=== PATIENT | female | born 1960 | race Caucasian/White ===

== ENCOUNTER 2018-05-05 11:03 | Emergency (ER) | payer OTHER ==
[~2018-05-05] VITALS: Ht 152.4 cm; Wt 100.3 kg
[2018-05-05 11:03] VITALS: BP 145/71
[~2018-05-05 11:03] MED LIST: ALLO100T66 PO; ALPR0.5T PO; GABA-585 PO; MECL25TA3 PO; OMEP20CA5 PO; ONDA4TAB10 SL
--- NOTE | 2018-05-05 11:19 | PHYS DOC ---
Past History Past Medical History: Anxiety, Depression, GERD Past Surgical History: Hysterectomy Smoking: Cigarettes Alcohol Use: None Drug Use: None Adult General Chief Complaint Chief Complaint: FINGER INJURY HPI HPI 57-year-old female presents with left thumb laceration. The patient was making an apple salad and the knife slipped and she cut into her left thumb at the distal end. She began to have immediate bleeding and realized it was a large enough cut to need repair. She has no other injuries. She is unsure of the date of her last tetanus. Review of Systems Review of Systems Constitutional: Denies fever or chills [] Eyes: Denies change in visual acuity, redness, or eye pain [] HENT: Denies nasal congestion or sore throat [] Respiratory: Denies cough or shortness of breath [] Cardiovascular: No additional information not addressed in HPI [] GI: Denies abdominal pain, nausea, vomiting, bloody stools or diarrhea [] : Denies dysuria or hematuria [] Musculoskeletal: Left thumb laceration[] Integument: Denies rash or skin lesions [] Neurologic: Denies headache, focal weakness or sensory changes [] Endocrine: Denies polyuria or polydipsia [] All other systems were reviewed and found to be within normal limits, except as documented in this note. Allergies Allergies Allergies Coded Allergies Type Severity Reaction Last Updated Verified No Known Drug Allergies 05/05/18 No Physical Exam Physical Exam Constitutional: Well developed, well nourished, no acute distress, non-toxic appearance. [] HENT: Normocephalic, atraumatic, bilateral external ears normal, oropharynx moist, no oral exudates, nose normal. [] Eyes: PERRLA, EOMI, conjunctiva normal, no discharge. [] Neck: Normal range of motion, no tenderness, supple, no stridor. [] Cardiovascular:Heart rate regular rhythm, no murmur [] Lungs & Thorax: Bilateral breath sounds clear to auscultation [] Abdomen: Bowel sounds normal, soft, no tenderness, no masses, no pulsatile masses. [] Skin: 3.5 cm curved laceration of the distal left thumb.[] Back: No tenderness, no CVA tenderness. [] Extremities: No tenderness, no cyanosis, no clubbing, ROM intact, no edema. [] Neurologic: Alert and oriented X 3, normal motor function, normal sensory function, no focal deficits noted. [] Psychologic: Affect normal, judgement normal, mood normal. [] EKG EKG [] Radiology/Procedures Radiology/Procedures [] Course & Med Decision Making Course & Med Decision Making Pertinent Labs and Imaging studies reviewed. (See chart for details) The patient had a curved laceration of her thumb. This wound was fairly teeth at the center. I was able to repair with sutures. See note below for more details. A inform the patient that due to the curved nature of the wound there may be a section of the skin that would not survive. There is also a chance that she may have a portion of her thumb that we'll have decreased feeling temporarily or even permanently. If the skin dries up and becomes unviable, there is a small chance she may need to see plastic surgery. She is aware of all of this. She'll follow up with her PCP for wound check and suture removal in 7 days. Given the depth of the wound and the fact that she was cutting up food, I will put her on Keflex for 5 days prophylactically. She is stable for discharge at this time. [] Dragon Disclaimer Dragon Disclaimer This electronic medical record was generated, in whole or in part, using a voice recognition dictation system. Laceration Repair Lac Repair Indication: [3.5 cm curved laceration of the left thumb.] Procedure: I obtained verbal consent from the patient to repair her laceration with sutures. The area was thoroughly irrigated with Hibiclens saline solution. No foreign bodies were found. I anesthetized the finger with 1% lidocaine. A total of 2 mL was used. Once good anesthesia was achieved, I placed 6 interrupted 4-0 Ethilon sutures. The skin margins were well approximated. The bleeding was controlled. The wound was dressed with a nonadherent gauze dressing covered with a puffy gauze dressing. Total repaired wound length: 3.5 cm. Other Items: None The patient tolerated the procedure well. Complications: None. Departure Departure: Impression: Primary Impression: Laceration of left thumb without damage to nail Disposition: HOME, SELF-CARE Condition: STABLE Referrals: CHAYA CMDERMOTT DO (PCP) Patient Instructions: Laceration Care, Adult Scripts Cephalexin (KEFLEX) 500 Mg Capsule 1 CAP PO BID for laceration for 5 Days, #10 CAP Prov: TEMO CHAPMAN DO 05/05/18 Problem Qualifiers Primary Impression: Laceration of left thumb without damage to nail Encounter type: initial encounter Foreign body presence: without foreign body Qualified Codes: S61.012A - Laceration without foreign body of left thumb without damage to nail, initial encounter TEMO CHAPMAN DO May 05, 2018 11:19
[2018-05-05] MEDS ORDERED: DIPHTH,PERTUSS(ACELL),TET TOX 0.5 ML DISP.SYRIN. VAX IM ONE (11:30)
[2018-05-05] MEDS ORDERED: CEPH-264 PO (11:54)
[2018-05-05] MEDS ORDERED: HYDR-3165 PO (11:56)
== END 2018-05-05 11:57 | disposition home or self-care (01) ==
LOC: ER 11:03
DX: S61.012A Laceration without foreign body of left thumb without damage to nail, initial encounter (principal); F41.9 Anxiety disorder, unspecified; F32.9 Major depressive disorder, single episode, unspecified; K21.9 Gastro-esophageal reflux disease without esophagitis; F17.210 Nicotine dependence, cigarettes, uncomplicated; W26.0XXA Contact with knife, initial encounter; Y93.89 Activity, other specified; Y92.89 Other specified places as the place of occurrence of the external cause; Y99.8 Other external cause status
CPT/HCPCS: 12002; 90471; 90715; 99283-25

== ENCOUNTER → 2018-07-27 | Outpatient (CLI) | payer OTHER ==
[~2018-07-27] MED LIST changes: +CEPH-264 PO; +HYDR-3165 PO
--- NOTE | 2018-07-28 09:10 | RAD ---
PA and lateral chest. HISTORY: Short of breath PA and lateral chest views the chest were compared with a study from June 2015. Lungs are clear. Heart is normal in size without heart failure. There is no effusion. IMPRESSION: 1. No acute chest disease. Electronically signed by: Donato Wu MD (07/28/2018 9:08 AM) [facility]
== END | disposition home or self-care (01) ==
LOC: DXRAD 17:10
PROVIDERS: ATTEND General Practice
DX: R05 Cough (principal); R06.02 Shortness of breath
CPT/HCPCS: 71046

== ENCOUNTER → 2019-05-31 | Outpatient (CLI) | payer OTHER ==
[~2019-05-31] MED LIST changes: +MECL-75 PO; -MECL25TA3 PO
--- NOTE | 2019-06-04 17:55 | RAD ---
BILATERAL SCREENING MAMMOGRAM, 3-D History: Routine screening. Comparison: None. Prior examinations are reportedly no longer available. This exam is considered as a baseline. Technique: MLO and CC digital tomosynthesis (3D) images obtained. Radiologist reviewed these images on dedicated workstation. Findings: Breast Tissue Density B : There are scattered areas of fibroglandular density. There are no dominant masses, suspicious microcalcifications, or architectural distortion. A small mass is present however at the right lower inner breast anteriorly approximately 1.7 cm from the nipple. It measures up to 0.3 cm. Is best seen on 3-D imaging. Benign calcifications are present bilaterally. IMPRESSION: Spot compression of the right breast recommended. Ultrasound may be needed. BI-RADS Category 0: Incomplete: Need additional imaging evaluation. The images were reviewed with computer-aided detection. Patient information is entered into reminder system with a target due date for the next screening mammogram. Mammography is the most sensitive method for finding small breast cancers, but it does not detect them all and is not a substitute for careful clinical examination. A negative mammogram does not negate a clinically suspicious finding and should not result in delay in biopsying a clinically suspicious abnormality. "Our facility is accredited by the [employer] Mammography Program." Electronically signed by: Michael Galaviz MD (06/04/2019 5:52 PM) [place] [id number]
== END | disposition home or self-care (01) ==
LOC: MAMMO 08:48
PROVIDERS: ATTEND Family Medicine
DX: Z12.31 Encounter for screening mammogram for malignant neoplasm of breast (principal)
CPT/HCPCS: 77063; 77067

== ENCOUNTER → 2020-01-03 | Outpatient (CLI) | payer OTHER ==
--- NOTE | 2020-01-03 17:42 | RAD ---
DATE: 01/03/2020 12:59 PM EXAM: DIGITAL DIAGNOSTIC RT HISTORY: Screening recall for nodularity in the anterior lower inner right breast . Patient's follow-up examination was delayed due to pandemic related lockdowns. COMPARISON: 05/31/2019 bilateral mammogram Spot compression views of the right breast CC and MLO projections were obtained in addition to a full-field right ML view. This study was interpreted with the benefit of Computerized Aided Detection (CAD). FINDINGS: Breast Density: SCATTERED The breast parenchyma shows scattered fibroglandular densities. Breast parenchyma level B Benign nodular parenchymal pattern is better demonstrated on additional views obtained at this visit. Ultrasound not pursued given benign mammographic pattern. No suspicious masses, microcalcifications or architectural distortion is present to suggest malignancy in the breast. The visualized axilla is unremarkable. IMPRESSION: No mammographic evidence of malignancy. BI-RADS CATEGORY: 2 BENIGN FINDING(S) RECOMMENDED FOLLOW-UP: 12M 12 MONTH FOLLOW-UP Annual screening mammography is recommended, unless clinically indicated sooner based on symptoms or change in physical exam. She will next due for mammographic screening after May 31, 2020. PQRS compliance statement: Patient information was entered into a reminder system with a target due date for the next mammogram. Mammography is a sensitive method for finding small breast cancers, but it does not detect them all and is not a substitute for careful clinical examination. A negative mammogram does not negate a clinically suspicious finding and should not result in delay in biopsying a clinically suspicious abnormality. "Our facility is accredited by the [employer] Mammography Program."
== END | disposition home or self-care (01) ==
LOC: MAMMO 12:52
PROVIDERS: ATTEND Family Medicine
DX: R92.2 Inconclusive mammogram (principal)
CPT/HCPCS: 77065

== ENCOUNTER 2020-03-20 07:52 | Inpatient (IN) | payer OTHER ==
[~2020-03-20] VITALS: Ht 165.1 cm; Wt 102.7 kg
--- NOTE | 2020-03-20 07:59 | PHYS DOC ---
Past History Past Medical History: No Pertinent History Past Surgical History: Hysterectomy Smoking: Cigarettes Alcohol Use: None Drug Use: None Adult General HPI HPI Patient is a 59-year-old female presenting for symptomatic COVID-19 infection. States she was diagnosed 1 week ago and has been having 7 days worth of [id number] symptoms. Patient cites subjective fevers, fatigue, chills, muscle aches, shortness of breath, abdominal discomfort, nausea, and x1 episode of nonbloody nonbilious emesis this morning. She has had decreased p.o. intake because she has not been feeling well but admits her urine output has remained at baseline. She denies any known Covid positive contacts but admits she is in the general public grocery shopping for her family in addition to working a job that exposes her to the general public. She has not been tested for COVID-19 but wants to be tested today. No other significant past medical history, had provocative cardiac testing performed earlier this year in addition to a colonoscopy that were all grossly unremarkable. No headache or syncope, no chest pain, no urinary symptoms. Review of Systems Review of Systems Fourteen body systems of review of systems have been reviewed. See HPI for pertinent positives and negative responses, other hernandez all other systems are negative, non-pertinent or non-contributory Allergies Allergies Allergies Coded Allergies Type Severity Reaction Last Updated Verified No Known Drug Allergies 05/05/18 No Physical Exam Physical Exam Constitutional: Well developed, well nourished, no acute distress, non-toxic appearance. HENT: Normocephalic, atraumatic, bilateral external ears normal, oropharynx dry, no oral exudates, nose normal. Eyes: PERRLA, EOMI, conjunctiva normal, no discharge. Neck: Normal range of motion, no tenderness, supple, no stridor. Cardiovascular: Heart rate regular, sinus rhythm, no murmurs rubs or gallops Lungs & Thorax: No respiratory distress or accessory muscle use, crackles present in bilateral upper lung alcantar Abdomen: Bowel sounds normal, soft, no tenderness, no masses, no pulsatile masses. Nonsurgical abdomen, no peritoneal signs Skin: Warm, dry, no erythema, no rash. Back: No tenderness, no CVA tenderness. Extremities: No tenderness, no cyanosis, no clubbing, ROM intact, no edema. Neurologic: Alert and oriented X 3, grossly normal motor & sensory function, no focal deficits noted. Psychologic: Affect normal, judgement normal, anxious mood Current Patient Data Vital Signs Vital Signs Date Time Temp Pulse Resp B/P (MAP) Pulse Ox O2 Delivery O2 Flow Rate FiO2 03/20/20 09:45 75 16 129/66 (87) 96 Nasal Cannula 2.0 03/20/20 08:00 98.6 Lab Results Laboratory Tests Test 03/20/20 08:10 03/20/20 08:40 White Blood Count 3.9 x10^3/uL (4.0-11.0) Red Blood Count 4.22 x10^6/uL (3.50-5.40) Hemoglobin 12.6 g/dL (12.0-15.5) Hematocrit 36.9 % (36.0-47.0) Mean Corpuscular Volume 87 fL (79-100) Mean Corpuscular Hemoglobin 30 pg (25-35) Mean Corpuscular Hemoglobin Concent 34 g/dL (31-37) Red Cell Distribution Width 13.5 % (11.5-14.5) Platelet Count 118 x10^3/uL (140-400) Neutrophils (%) (Auto) 55 % (31-73) Lymphocytes (%) (Auto) 37 % (24-48) Monocytes (%) (Auto) 7 % (0-9) Eosinophils (%) (Auto) 1 % (0-3) Basophils (%) (Auto) 1 % (0-3) Neutrophils # (Auto) 2.1 x10^3uL (1.8-7.7) Lymphocytes # (Auto) 1.4 x10^3/uL (1.0-4.8) Monocytes # (Auto) 0.3 x10^3/uL (0.0-1.1) Eosinophils # (Auto) 0.0 x10^3/uL (0.0-0.7) Basophils # (Auto) 0.0 x10^3/uL (0.0-0.2) D-Dimer (Neema) 0.84 mg/L (0.00-0.50) Sodium Level 142 mmol/L (136-145) Potassium Level 3.9 mmol/L (3.5-5.1) Chloride Level 103 mmol/L (98-107) Carbon Dioxide Level 28 mmol/L (21-32) Anion Gap 11 (6-14) Blood Urea Nitrogen 13 mg/dL (7-20) Creatinine 0.8 mg/dL (0.6-1.0) Estimated GFR (Cockcroft-Gault) 73.9 BUN/Creatinine Ratio 16 (6-20) Glucose Level 112 mg/dL (70-99) Calcium Level 8.3 mg/dL (8.5-10.1) Total Bilirubin 0.3 mg/dL (0.2-1.0) Aspartate Amino Transf (AST/SGOT) 30 U/L (15-37) Alanine Aminotransferase (ALT/SGPT) 39 U/L (14-59) Alkaline Phosphatase 90 U/L (46-116) Troponin I Quantitative < 0.017 ng/mL (0-0.055) Total Protein 7.1 g/dL (6.4-8.2) Albumin 3.8 g/dL (3.4-5.0) Albumin/Globulin Ratio 1.2 (1.0-1.7) Influenza Type A (Rapid) Negative (NEGATIVE) Influenza Type B (Rapid) Negative (NEGATIVE) EKG EKG EKG ordered and interpreted by myself at 0902 hrs. as sinus rhythm at 82 bpm, intervals unremarkable except prolonged QTC at 471, left axis deviation, no acute ischemic findings, no STEMI Radiology/Procedures Radiology/Procedures EXAM: Chest, single view. HISTORY: Shortness of breath. COMPARISON: 07/27/2018 FINDINGS: A frontal view of the chest is obtained. There is no infiltrate, pleural effusion or pneumothorax. The heart is normal in size. IMPRESSION: No acute pulmonary finding. Electronically signed by: Tanya Funk MD (03/20/2020 8:38 AM) [facility] EXAM: CT angiography of the chest with intravenous contrast. HISTORY: Shortness of breath. Positive d-dimer. TECHNIQUE: Computed tomographic images of the chest were obtained following the administration of intravenous contrast according to angiography protocol. Multiplanar reformatting was performed and three dimensional maximum intensity projection images were obtained. *One or more of the following individualized dose reduction techniques were utilized for this examination: 1. Automated exposure control. 2. Adjustment of the mA and/or kV according to patient size. 3. Use of iterative reconstruction technique. COMPARISON: None. FINDINGS: There is no evidence of pulmonary embolism. The heart is upper normal in size. There is trace pericardial fluid. The aorta is normal in caliber. There are enlarged mediastinal and bilateral hilar lymph nodes. There is a calcification involving the inferior right thyroid lobe. No discrete nodule is seen. There is no pneumothorax or pleural effusion. There is left greater than right posterior lower lobe infiltrate. There are a few tiny groundglass nodular opacities within the right middle lobe, also likely due to infiltrate. There is a small hiatal hernia. The spleen is upper normal in size. There is no acute finding involving the the visualized upper abdomen or osseous structures. IMPRESSION: 1. No evidence of pulmonary vessel. 2. Posterior left greater than right lower lobe pneumonia and patchy nodular infiltrate within the right middle lobe. Follow-up to confirm resolution. 3. Mediastinal and hilar lymphadenopathy. This likely reactive given the aforementioned findings. Electronically signed by: Tanya uFnk MD (03/20/2020 9:45 AM) [facility] Heart Score HEART Score for Chest Pain: HEART Score for Chest Pain Response (Comments) Value History Slighlty/Non-Suspicious 0 ECG Normal 0 Age >45 - < 65 1 Risk Factors 1 or 2 Risk Factors 1 Troponin < Normal Limit 0 Total 2 Risk Factors: Risk Factors: DM, Current or recent (<one month) smoker, HTN, HLP, family history of CAD, obesity. Risk Scores: Risk Factors: DM, Current or recent (<one month) smoker, HTN, HLP, family history of CAD, obesity. Course & Med Decision Making Course & Med Decision Making Pertinent Labs and Imaging studies reviewed. (See chart for details) Discussed most likely diagnosis of bilateral pneumonia. Cannot exclude COVID-19 given classic symptomology, patient tested, test pending at this time. Patient desaturated on room air into 80s multiple times during admission requiring supplemental O2. As such, she will require admission I discussed need for admission with Dr. Madrid who agreed for admission under his care at [facility]. 2 g IV Rocephin and 100 mg IV doxycycline given prolonged QT administered for patient's pneumonia. Patient remains on 2 L supplemental oxygen via nasal cannula I updated patient on proposed plan of care, she was amenable to admission. All questions and concerns addressed prior to ER transport to [facility] for further inpatient medical management in stable condition Dulce Disclaimer Dulce Disclaimer This electronic medical record was generated, in whole or in part, using a voice recognition dictation system. PERC Rule for PE PERC Rule for PE Response (Comments) Value Age > 50: Yes 1 HR > 100: No 0 Sa02 on room air <95%: Yes 1 Unilateral leg swelling: No 0 Hemoptysis: No 0 Recent surgery or trauma: No 0 Prior PE or DVT: No 0 Hormone use: No 0 Total 2 Departure Departure: Impression: Primary Impression: PNA (pneumonia) Additional Impressions: Hypoxia Person under investigation for COVID-19 Disposition: 09 ADMITTED INPT THIS [facility] Admitting Physician: Kendrick Madrid Condition: STABLE Referrals: RAKEL BLANKENSHIP MD (PCP) Problem Qualifiers JULITA LOMELI DO Mar 20, 2020 07:59
[2020-03-20] MEDS ORDERED: IV NORMAL SALINE 1,000ML 1,000 ML IV ONE (08:00)
[2020-03-20] MEDS ORDERED: ONDANSETRON PF 4 MG/2 ML VIAL. IVP ONE (08:30)
[2020-03-20] MEDS ORDERED: ACETAMINOPHEN 325 MG TABLET PO ONE (08:30)
[2020-03-20 08:34] LABS: BASO % 1 % (0-3); EOS % 1 % (0-3); HEMATOCRIT 36.9 % (36.0-47.0); HEMOGLOBIN 12.6 g/dL (12.0-15.5); LYMPH # 1.4 x10^3/uL (1.0-4.8); LYMPH % 37 % (24-48); MEAN CORPUSCULAR HEMOGLOBIN 30 pg (25-35); MEAN CORPUSCULAR HGB CONC 34 g/dL (31-37); MEAN CORPUSCULAR VOLUME 87 fL (79-100); MONO # 0.3 x10^3/uL (0.0-1.1); MONO % 7 % (0-9); NEUT # 2.1 x10^3uL (1.8-7.7); NEUT % 55 % (31-73); PLATELET COUNT 118 x10^3/uL (140-400); RED BLOOD COUNT 4.22 x10^6/uL (3.50-5.40); RED CELL DISTRIBUTION WIDTH 13.5 % (11.5-14.5); WHITE BLOOD COUNT 3.9 x10^3/uL (4.0-11.0)
[2020-03-20 08:40] LABS: CALCIUM 8.3 mg/dL (8.5-10.1); CREATININE 0.8 mg/dL (0.6-1.0); GFR 73.9; POTASSIUM 3.9 mmol/L (3.5-5.1)
--- NOTE | 2020-03-20 08:41 | RAD ---
EXAM: Chest, single view. HISTORY: Shortness of breath. COMPARISON: 07/27/2018 FINDINGS: A frontal view of the chest is obtained. There is no infiltrate, pleural effusion or pneumothorax. The heart is normal in size. IMPRESSION: No acute pulmonary finding. Electronically signed by: Tanya Funk MD (03/20/2020 8:38 AM) [facility]
[2020-03-20 08:46] LABS: ALBUMIN 3.8 g/dL (3.4-5.0); ALBUMIN/GLOBULIN RATIO 1.2 (1.0-1.7); TOTAL BILIRUBIN 0.3 mg/dL (0.2-1.0); TOTAL PROTEIN 7.1 g/dL (6.4-8.2)
[2020-03-20] MEDS ORDERED: IOHEXOL 350 MG/ML 100 ML VIAL. IV ONE (09:15)
[2020-03-20] MEDS ORDERED: CONTRAST GIVEN. MC PRN (09:15)
[2020-03-20 09:19] LABS: INFLUENZA A PATIENT NEGATIVE (NEGATIVE); INFLUENZA B PATIENT NEGATIVE (NEGATIVE)
--- NOTE | 2020-03-20 09:47 | RAD ---
EXAM: CT angiography of the chest with intravenous contrast. HISTORY: Shortness of breath. Positive d-dimer. TECHNIQUE: Computed tomographic images of the chest were obtained following the administration of intravenous contrast according to angiography protocol. Multiplanar reformatting was performed and three dimensional maximum intensity projection images were obtained. *One or more of the following individualized dose reduction techniques were utilized for this examination: 1. Automated exposure control. 2. Adjustment of the mA and/or kV according to patient size. 3. Use of iterative reconstruction technique. COMPARISON: None. FINDINGS: There is no evidence of pulmonary embolism. The heart is upper normal in size. There is trace pericardial fluid. The aorta is normal in caliber. There are enlarged mediastinal and bilateral hilar lymph nodes. There is a calcification involving the inferior right thyroid lobe. No discrete nodule is seen. There is no pneumothorax or pleural effusion. There is left greater than right posterior lower lobe infiltrate. There are a few tiny groundglass nodular opacities within the right middle lobe, also likely due to infiltrate. There is a small hiatal hernia. The spleen is upper normal in size. There is no acute finding involving the the visualized upper abdomen or osseous structures. IMPRESSION: 1. No evidence of pulmonary vessel. 2. Posterior left greater than right lower lobe pneumonia and patchy nodular infiltrate within the right middle lobe. Follow-up to confirm resolution. 3. Mediastinal and hilar lymphadenopathy. This likely reactive given the aforementioned findings. Electronically signed by: Tanya Funk MD (03/20/2020 9:45 AM) [facility]
--- NOTE | 2020-03-20 09:54 | EKG ---
[facility] ED [facility] [address] [place] [id number] Test Date: 2020-03-20 Test Time: 08:53:10 Pat Name: HARMAN BANKS Department: Room: Gender: F Home Health Lpn: : 1960 Requested By: JULITA LOMELI Order Number: [id number] Reading MD: Measurements Intervals [place] Rate: 82 P: 36 TN: 162 QRS: -42 QRSD: 96 T: 36 QT: 400 QTc: 471 Interpretive Statements SINUS RHYTHM ABNORMAL LEFT AXIS DEVIATION R-S TRANSITION ZONE IN V LEADS DISPLACED TO THE LEFT LEFT ANTERIOR FASCICULAR BLOCK ABNORMAL ECG RI6.02 No previous ECG available for comparison
[2020-03-20] MEDS ORDERED: IV NORMAL SALINE 100ML 100 ML ONE (10:21)
[2020-03-20] MEDS ORDERED: DOXYCYCLINE HYCLATE 100 MG VIAL IV ONE (10:21)
[2020-03-20] MEDS ORDERED: IV DEXTROSE 5% 100 ML IV ONE (10:21)
[2020-03-20] MEDS ORDERED: ACETAMINOPHEN 325 MG TABLET PO PRN (10:30)
[2020-03-20] MEDS ORDERED: DOXYCYCLINE HYCLATE 100 MG in IV DEXTROSE 5% 100 ML IV ONE (10:30)
[2020-03-20 14:00] VITALS: BP 138/77
[2020-03-20] MEDS ORDERED: OMEP20TA63 PO (14:30)
[2020-03-20] MEDS ORDERED: CITA40TA5 PO (14:31)
[2020-03-20] MEDS ORDERED: ALPR1TAB2 PO (14:32)
[2020-03-20] MEDS ORDERED: ALPRAZolam 0.5 MG TABLET PO PRN (16:15)
[2020-03-20] MEDS ORDERED: MECLIZINE 12.5 MG TABLET. PO PRN (16:30)
[2020-03-20] MEDS: ENOXAPARIN 40 MG/0.4 ML SYRINGE. SQ SCH (17:54)
[2020-03-20 20:35] VITALS: BP 110/66
[2020-03-20 20:46] VITALS: BP 130/67
[2020-03-20 22:41] VITALS: BP 122/73
[2020-03-20] MEDS: ALPRAZolam 0.5 MG TABLET PO SCH (22:47)
[2020-03-20] MEDS: DOXYCYCLINE HYCLATE 100 MG TABLET PO SCH (22:47)
[2020-03-20] MEDS: ONDANSETRON ODT 4 MG TAB.RAPDIS PO SCH (22:47)
[2020-03-20] MEDS: GABAPENTIN 100 MG CAPSULE. PO SCH (22:48)
[2020-03-20] MEDS: ALLOPURINOL 100 MG TABLET. PO SCH (22:48)
--- NOTE | 2020-03-20 22:50 | HP ---
ADMIT DATE: 03/20/2020 HISTORY OF PRESENT ILLNESS: The patient is a 59-year-old female patient who presented to the Emergency Room with worsening symptoms. All her complaints started last about 6 days ago, specifically last Monday on 03/15/2020 with chills, fever, diarrhea, nausea, vomiting, aches and pains particularly in both legs. She also had chest pain, shortness of breath, cough that is mostly dry. Her symptom has steadily worsened and therefore she came today to the Emergency Room for further evaluation and treatment where she was extensively investigated. Her white cell count was on the lower side at 3.9. Her influenza A and B were both negative. Her D-dimer was 0.84. Her chemistry was mostly unremarkable. She did have a chest x-ray, which showed no acute pulmonary finding. However, CT angio of the chest showed that there is no evidence of pulmonary emboli; however, she has posterior left greater than right lower lobe pneumonia and patchy ____ infiltrate within the right middle lobe, follow up to confirm resolution. She also was found to have mediastinal and hilar lymphadenopathy. This is likely reactive given the aforementioned finding and the patient was admitted with a diagnosis of healthcare-associated pneumonia. She was also admitted with acute hypoxic respiratory failure and she was swabbed for COVID-19, although she has no documented exposure to COVID-19 virus. She was tested at work and she was negative according to her. PAST MEDICAL HISTORY: Significant for gastroesophageal reflux disease, anxiety and depression. PAST SURGICAL HISTORY: Significant for total abdominal hysterectomy without oophorectomy. ALLERGIES: She has no known drug allergies. MEDICATIONS: She is on Prilosec 20 mg once a day. She is also on alprazolam or Xanax 1 mg twice a day, citalopram hydrobromide 40 mg daily. She is on gabapentin 100 mg 3 times a day as well as meclizine 25 mg 3 times a day and ondansetron 4 mg ODT every 8 hours and allopurinol 100 mg 3 times a day. She was also on Keflex 500 mg twice a day and hydrocodone/APAP 5/325 one tablet every 6 hours. FAMILY HISTORY: Positive for the fact that her older sister has coronary artery disease, status post PCI with stent deployment. She has 2 younger sisters that are healthy. Her father is alive at age of 83 and has coronary artery bypass graft surgery. Mother is alive at age of 82 and seemingly healthy. SOCIAL HISTORY: She is , has 1 son and 2 daughters. She quit smoking 3 years ago. She does not drink alcohol or use any recreational drugs. She works at [employer] ____ [employer] for [employer]. REVIEW OF SYSTEMS: The patient denied any blurring of vision, cataract, glaucoma or macular degeneration. Denied any earache, tinnitus or sensorineural deafness. Denied any nosebleeds, stuffy nose or postnasal drip. Denied any sore throat, sore tongue, toothache, hoarseness of voice or difficulty swallowing. Did have some nausea and vomiting, however, the nausea and vomiting and diarrhea has mostly subsided. PHYSICAL EXAMINATION: GENERAL: When I examined her today, she was resting, slightly propped up in bed, in no apparent respiratory distress. There was no pallor, jaundice, cyanosis or thyromegaly. No jugular venous distention or limb edema. VITAL SIGNS: Her heart rate was 74, blood pressure was 138/77, temperature was 99, respiratory rate 20 and oxygen saturation was 94% on 2 liters of oxygen. HEAD, EYES, EARS, NOSE AND THROAT: Showed normocephalic, atraumatic. NECK: Supple. HEART: Showed normal first and second heart sounds. No gallop, rub or murmur. CHEST: Showed central trachea, equal bilateral expansion, air entry, vesicular sounds, very few scattered crepitations posteriorly. I could not appreciate any rhonchi. ABDOMEN: Distended, soft, nontender. NEUROLOGIC: She was awake, alert, responding appropriately. She is grossly intact. LABORATORY DATA: Showed a white cell count of 3900, hemoglobin 12.6, hematocrit 36.9, MCV 87 and platelet count of 118,000. Her serum sodium was 142, potassium 3.9, chloride 103, bicarbonate 28, anion gap of 11, BUN 13, creatinine 0.8, estimated GFR was 74 mL per minute. Her glucose was 112, calcium was 8.3. Total bilirubin 0.3. AST, ALT, alkaline phosphatase were normal. Her total protein was 7.1, albumin was 3.8. Her D-dimer was 0.84. Her influenza A and B were negative and CT scan showed that she has posterior left greater than right lower lobe pneumonia and patchy nodular infiltrate within the right middle lobe. She also has mediastinal and hilar lymphadenopathy, it is likely reactive given the aforementioned. ASSESSMENT AND PLAN: 1. The patient was admitted and was started on IV ceftriaxone and doxycycline. We will continue with all her other medications. Other final admission diagnosis is community-acquired pneumonia, questionable COVID-19 infection. 2. Acute hypoxic respiratory failure. 3. Gastroesophageal reflux disease. 4. Anxiety and depression. CRUZ HECTOR MD DR: FAYE/edwina JOB#: [id number] / [id number]
[2020-03-21] MEDS: HYDROcodone/APAP 5/325MG 1 TAB TABLET PO PRN ×3 (05:47→20:25)
[2020-03-21] MEDS: ONDANSETRON ODT 4 MG TAB.RAPDIS PO SCH ×3 (05:47→22:00)
[2020-03-21 05:50] VITALS: BP 128/77
[2020-03-21] MEDS: PANTOPRAZOLE 40 MG TABLET. PO SCH (08:22)
[2020-03-21] MEDS: GABAPENTIN 100 MG CAPSULE. PO SCH ×3 (08:22→20:23)
[2020-03-21] MEDS: ALPRAZolam 0.5 MG TABLET PO SCH ×2 (08:22→20:25)
[2020-03-21] MEDS: DOXYCYCLINE HYCLATE 100 MG TABLET PO SCH ×2 (08:22→20:24)
[2020-03-21] MEDS: CITALOPRAM 20 MG TABLET. PO SCH (08:22)
[2020-03-21] MEDS: ALLOPURINOL 100 MG TABLET. PO SCH ×3 (08:22→20:24)
[2020-03-21 09:26] LABS: HEMATOCRIT 34.5 % (36.0-47.0); HEMOGLOBIN 11.6 g/dL (12.0-15.5); RED BLOOD COUNT 3.94 x10^6/uL (3.50-5.40); RED CELL DISTRIBUTION WIDTH 13.6 % (11.5-14.5); WHITE BLOOD COUNT 3.4 x10^3/uL (4.0-11.0)
[2020-03-21 11:00] VITALS: BP 125/70
[2020-03-21 14:07] LABS: ALBUMIN 3.3 g/dL (3.4-5.0); ALBUMIN/GLOBULIN RATIO 0.9 (1.0-1.7); CALCIUM 8.3 mg/dL (8.5-10.1); CREATININE 0.8 mg/dL (0.6-1.0); GFR 73.9; POTASSIUM 3.7 mmol/L (3.5-5.1); TOTAL BILIRUBIN 0.3 mg/dL (0.2-1.0); TOTAL PROTEIN 6.8 g/dL (6.4-8.2)
[2020-03-21 15:35] VITALS: BP 121/72
[2020-03-21] MEDS: ENOXAPARIN 40 MG/0.4 ML SYRINGE. SQ SCH (16:59)
[2020-03-21] MEDS: ACETAMINOPHEN 325 MG TABLET PO PRN (18:33)
[2020-03-21] MEDS: LACTOBACILLUS RHAMNOSUS GG 1 CAPSULE. PO SCH (20:24)
[2020-03-21] MEDS ORDERED: LACTOBACILLUS RHAMNOSUS GG 1 CAPSULE. PO SCH (21:00)
[2020-03-21 21:09] VITALS: BP 142/82
[2020-03-22] VITALS (8 sets, daily range): BP systolic 116–158; BP diastolic 65–77
--- NOTE | 2020-03-22 00:45 | PN ---
DATE: SUBJECTIVE: The patient is resting, almost flat in bed, sleeping comfortably. She is arousable. On questioning her, she stated that she is feeling tired, but denied any other complaints. In particular, denied any chills, rigors, or fever. Denied any chest pain. She has mild cough that is mostly dry. PHYSICAL EXAMINATION: GENERAL: When I examined her this afternoon, she looked well and was clearly in no apparent respiratory distress. Pale. No jaundice, cyanosis or thyromegaly. No jugular venous distention. No limb edema. VITAL SIGNS: Her heart rate was 73, blood pressure was 125/70, temperature was 98.4, respiratory rate was 18 and oxygen saturation was 93% on 2 liters of oxygen. HEAD, EYES, EARS, NOSE AND THROAT: Showed normocephalic, atraumatic. NECK: Supple. CARDIAC: Normal first and second heart sounds. No gallop or murmur. CHEST: Showed central trachea, equal bilateral chest expansion, air entry, very few scattered crepitations posteriorly. I could not appreciate any rhonchi. ABDOMEN: Distended, soft, nontender. NEUROLOGIC: She was sleepy, but arousable. All cranial nerves intact. She moves extremities without difficulty. Her intake over the last 24 hours and output are incompletely recorded. LABORATORY DATA: Her lab work this morning showed a white cell count of 3400, hemoglobin 11.6, hematocrit 34.5, MCV 88 and platelet count of 109,000. Her chemistry this morning showed a serum sodium 144, potassium 3.7, chloride 109, bicarbonate 28, anion gap of 7, BUN 11, creatinine 0.8, estimated GFR was 74 mL per minute. Her glucose was 97, calcium was 8.3. Total bilirubin, AST, ALT, alkaline phosphatase were normal. Total protein 6.8, albumin 3.3. Her influenza A and B were negative. Her D-dimer was 0.84. Her COVID-19 was still pending at the time of this dictation. ASSESSMENT: 1. The patient was admitted with community-acquired pneumonia for which she is now on ceftriaxone and doxycycline. 2. Questionable COVID-19 infection. 3. Acute hypoxic respiratory failure. 4. Gastroesophageal reflux disease. 5. Anxiety and depression. PLAN: To continue with IV antibiotic in the form of ceftriaxone and doxycycline. Continue with DVT prophylaxis. Continue with GI prophylaxis. Continue with all her other medications. CRUZ HECTOR MD DR: FAYE/edwina JOB#: [id number] / [id number]
[2020-03-22] MEDS: ONDANSETRON ODT 4 MG TAB.RAPDIS PO SCH ×3 (06:00→20:39)
[2020-03-22] MEDS: LACTOBACILLUS RHAMNOSUS GG 1 CAPSULE. PO SCH ×2 (08:39→20:39)
[2020-03-22] MEDS: DOXYCYCLINE HYCLATE 100 MG TABLET PO SCH ×2 (08:40→20:39)
[2020-03-22] MEDS: PANTOPRAZOLE 40 MG TABLET. PO SCH (08:40)
[2020-03-22] MEDS: ALPRAZolam 0.5 MG TABLET PO SCH ×2 (08:40→20:39)
[2020-03-22] MEDS: GABAPENTIN 100 MG CAPSULE. PO SCH ×3 (08:40→20:38)
[2020-03-22] MEDS: ALLOPURINOL 100 MG TABLET. PO SCH ×3 (08:40→20:39)
[2020-03-22] MEDS: CITALOPRAM 20 MG TABLET. PO SCH (08:40)
[2020-03-22] MEDS: HYDROcodone/APAP 5/325MG 1 TAB TABLET PO PRN (15:25)
[2020-03-22] MEDS: DEXAMETHASONE SOD PHOS 10 MG/ML VIAL. IV SCH (15:38)
[2020-03-22] MEDS: ENOXAPARIN 40 MG/0.4 ML SYRINGE. SQ SCH (17:11)
--- NOTE | 2020-03-23 01:57 | PN ---
DATE: 03/22/2020 SUBJECTIVE: The patient is resting, slightly propped up in bed, in no apparent distress. She is awake, alert. Continued to have cough, which is mostly dry, but denied any shortness of breath. Denied any chills, rigors or fever. PHYSICAL EXAMINATION: GENERAL: When I examined her, she looked well and was clearly in no apparent respiratory distress. No pallor, jaundice, cyanosis or thyromegaly. No jugular venous distention. No limb edema. VITAL SIGNS: Her heart rate was 78, blood pressure was 116/72, temperature was 98.2, respiratory rate was 18 and oxygen saturation was 93% on 2 liters of oxygen. HEAD, EYES, EARS, NOSE AND THROAT: Normocephalic, atraumatic. NECK: Supple. CARDIAC: Normal first and second heart sounds. No gallop or murmur. CHEST: Clear to auscultation. No crepitation or rhonchi. ABDOMEN: Distended, soft, nontender. NEUROLOGIC: She was awake, alert, responding appropriately. All cranial nerves intact. She moves extremities without difficulty. She ambulates without assistance or assistive devices. Her intake was 1500, no output was recorded. Her coronavirus PCR was detectable. Her influenza A and B were negative. LABORATORY DATA: Her chemistry as of yesterday showed a serum sodium 144, potassium 3.7, chloride 109, bicarbonate 28, anion gap of 7, BUN 11, creatinine 0.8. Her white cell count was 3400, hemoglobin 11, hematocrit 34, MCV 88 and platelet count of 109,000. Her D-dimer was 0.84. ASSESSMENT: 1. COVID-19 pneumonia. 2. Acute hypoxic respiratory failure. 3. Gastroesophageal reflux disease. 4. Anxiety and depression. 5. Gout. PLAN: My plan is to continue with IV ceftriaxone as well as doxycycline. Continue with DVT prophylaxis. Continue with GI prophylaxis. I added dexamethasone. CRUZ HECTOR MD DR: FAYE/edwina JOB#: [id number] / [id number]
[2020-03-23 05:20] VITALS: BP 127/76
[2020-03-23] MEDS: ONDANSETRON ODT 4 MG TAB.RAPDIS PO SCH ×2 (06:30→13:23)
[2020-03-23 06:34] LABS: HEMATOCRIT 34.9 % (36.0-47.0); HEMOGLOBIN 11.9 g/dL (12.0-15.5); RED BLOOD COUNT 4.02 x10^6/uL (3.50-5.40); RED CELL DISTRIBUTION WIDTH 13.3 % (11.5-14.5); WHITE BLOOD COUNT 3.6 x10^3/uL (4.0-11.0)
[2020-03-23 06:42] LABS: ALBUMIN 3.3 g/dL (3.4-5.0); ALBUMIN/GLOBULIN RATIO 0.8 (1.0-1.7); CALCIUM 8.6 mg/dL (8.5-10.1); CREATININE 0.6 mg/dL (0.6-1.0); POTASSIUM 3.8 mmol/L (3.5-5.1); TOTAL BILIRUBIN 0.3 mg/dL (0.2-1.0); TOTAL PROTEIN 7.5 g/dL (6.4-8.2)
[2020-03-23] MEDS: DOXYCYCLINE HYCLATE 100 MG TABLET PO SCH ×2 (08:17→20:25)
[2020-03-23] MEDS: ALLOPURINOL 100 MG TABLET. PO SCH ×3 (08:17→20:25)
[2020-03-23] MEDS: PANTOPRAZOLE 40 MG TABLET. PO SCH (08:17)
[2020-03-23] MEDS: LACTOBACILLUS RHAMNOSUS GG 1 CAPSULE. PO SCH ×2 (08:17→20:24)
[2020-03-23] MEDS: CITALOPRAM 20 MG TABLET. PO SCH (08:17)
[2020-03-23] MEDS: GABAPENTIN 100 MG CAPSULE. PO SCH ×3 (08:17→20:24)
[2020-03-23] MEDS: ALPRAZolam 0.5 MG TABLET PO SCH ×2 (08:17→20:24)
[2020-03-23] MEDS: DEXAMETHASONE SOD PHOS 10 MG/ML VIAL. IV SCH (08:18)
[2020-03-23] MEDS: HYDROcodone/APAP 5/325MG 1 TAB TABLET PO PRN (09:18)
[2020-03-23 10:00] VITALS: BP 117/71
[2020-03-23] MEDS: ENOXAPARIN 40 MG/0.4 ML SYRINGE. SQ SCH (13:23)
[2020-03-23 15:00] VITALS: BP 112/75
[2020-03-23] MEDS ORDERED: ONDANSETRON ODT 4 MG TAB.RAPDIS PO PRN (16:00)
[2020-03-23 19:30] VITALS: BP 157/75
--- NOTE | 2020-03-23 20:57 | PN ---
DATE: SUBJECTIVE: The patient is resting, slightly propped up in bed, in no apparent distress. She is awake, alert, continued to complain mostly of generalized weakness and fatigability. She continued to desaturate with exertion. In fact, she requires 3 liters of oxygen to maintain her oxygen saturation at 90 or above. Denied any chest pain. Denied any shortness of breath, has cough with scanty sputum. PHYSICAL EXAMINATION: GENERAL: When I examined her, she looked somewhat pale, but no jaundice, cyanosis or thyromegaly. No jugular venous distention. No limb edema. VITAL SIGNS: Her heart rate was 74, blood pressure was 117/71, temperature was 97.7, respiratory rate was 20 and oxygen saturation was 91% on 3 liters of oxygen. HEAD, EYES, EARS, NOSE AND THROAT: Showed normocephalic, atraumatic. NECK: Supple. HEART: Showed normal first and second heart sounds. No gallop, rub or murmur. CHEST: Showed central trachea, equal bilateral chest expansion, air entry, vesicular sounds with crepitation mostly on the left side. I could not really appreciate any rhonchi. ABDOMEN: Distended, soft, nontender. NEUROLOGIC: She is awake, alert, responding appropriately. All her cranial nerves intact. She moves extremities without difficulty. She ambulates without assistance or assistive devices. Her intake was 1370, no output was recorded. Her white cell count today was 3600, hemoglobin 12, hematocrit 35, MCV 87 and platelet count of 145,000. LABORATORY DATA: Serum sodium was 144, potassium 3.8, chloride 106, bicarbonate 31, anion gap of 7, BUN 13, creatinine 0.6, estimated GFR was 103 mL per minute. Her glucose 143, calcium was 8.6. Total bilirubin, AST, ALT, alkaline phosphatase were normal. Her total protein was 7.5, albumin was 3.3. ASSESSMENT: 1. COVID-19 pneumonia. 2. Acute hypoxic respiratory failure. 3. Gastroesophageal reflux disease. 4. Anxiety and depression. 5. Gout. PLAN: To continue with IV ceftriaxone as well as doxycycline. Continue with DVT prophylaxis. Continue with GI prophylaxis. Continue with dexamethasone. CRUZ HECTOR MD DR: FAYE/edwina JOB#: [id number] / [id number]
[2020-03-23 22:45] VITALS: BP 135/69
[2020-03-24 05:45] VITALS: BP 149/73
[2020-03-24] MEDS: LACTOBACILLUS RHAMNOSUS GG 1 CAPSULE. PO SCH ×2 (08:07→20:01)
[2020-03-24] MEDS: ALPRAZolam 0.5 MG TABLET PO SCH ×2 (08:07→20:01)
[2020-03-24] MEDS: GABAPENTIN 100 MG CAPSULE. PO SCH ×3 (08:08→20:01)
[2020-03-24] MEDS: ALLOPURINOL 100 MG TABLET. PO SCH ×3 (08:08→20:01)
[2020-03-24] MEDS: DOXYCYCLINE HYCLATE 100 MG TABLET PO SCH ×2 (08:08→20:01)
[2020-03-24] MEDS: CITALOPRAM 20 MG TABLET. PO SCH (08:08)
[2020-03-24] MEDS: PANTOPRAZOLE 40 MG TABLET. PO SCH (08:08)
[2020-03-24] MEDS: DEXAMETHASONE SOD PHOS 10 MG/ML VIAL. IV SCH (08:08)
[2020-03-24 11:00] VITALS: BP 136/73
[2020-03-24] MEDS: ENOXAPARIN 40 MG/0.4 ML SYRINGE. SQ SCH (14:48)
[2020-03-24 15:30] VITALS: BP 115/72
[2020-03-24 20:23] VITALS: BP 132/73
[2020-03-24 23:05] VITALS: BP 154/79
--- NOTE | 2020-03-25 00:32 | PN ---
DATE: 03/24/2020 SUBJECTIVE: The patient is resting, slightly propped up in bed, in no apparent respiratory distress. She is maintaining her oxygen saturation at 92% on 2 liters of oxygen by nasal cannula. She is feeling generally better, although she continued to have aches and pains and managed to get up and have a shower today and generally seems to be feeling better. PHYSICAL EXAMINATION: GENERAL: When I examined her, she looked well and was clearly in no apparent respiratory distress, slightly pale, but no jaundice, cyanosis or thyromegaly. No jugular venous distention. No limb edema. VITAL SIGNS: Her heart rate was 60, blood pressure was 115/72, temperature was 98.2, respiratory rate was 18, and oxygen saturation was 92% on 2 liters of oxygen. HEAD, EYES, EARS, NOSE AND THROAT: Showed normocephalic, atraumatic. NECK: Supple. HEART: Showed normal first and second heart sounds. No gallop, rub or murmur. CHEST: Clear to auscultation. No crepitation or rhonchi. ABDOMEN: Distended, soft, nontender. NEUROLOGIC: She is awake, alert, responding appropriately. All cranial nerves are intact. She moves extremities without difficulty. Her intake over the last 24 hours was 1300, no output was recorded. LABORATORY DATA: As of yesterday, her white cell count was 3600, hemoglobin 12, hematocrit 35, MCV 87 and platelet count of 145,000. Serum sodium was 144, potassium 3.8, chloride 106, bicarbonate 31, anion gap of 7, BUN 13, creatinine 0.6, estimated GFR was 103 mL per minute. Her glucose 143, calcium was 8.6. Total bilirubin, AST, ALT, alkaline phosphatase were normal. Total protein 7.5, albumin 3.3. Her D-dimer was 0.84. ASSESSMENT: 1. COVID-19 pneumonia. 2. Acute hypoxic respiratory failure. 3. Gastroesophageal reflux disease. 4. Anxiety and depression. 5. Gout. PLAN: Continue with IV ceftriaxone as well as doxycycline. Continue with DVT prophylaxis. Continue with GI prophylaxis. Continue with dexamethasone. The patient seems to be doing better and she probably can be discharged home tomorrow. CRUZ HECTOR MD DR: FAYE/edwina JOB#: [id number] / [id number]
[2020-03-25 05:43] VITALS: BP 153/78
[2020-03-25] MEDS: DOXYCYCLINE HYCLATE 100 MG TABLET PO SCH ×2 (07:53→20:17)
[2020-03-25] MEDS: ALPRAZolam 0.5 MG TABLET PO SCH ×2 (07:53→20:18)
[2020-03-25] MEDS: CITALOPRAM 20 MG TABLET. PO SCH (07:53)
[2020-03-25] MEDS: ALLOPURINOL 100 MG TABLET. PO SCH ×3 (07:53→20:17)
[2020-03-25] MEDS: GABAPENTIN 100 MG CAPSULE. PO SCH ×3 (07:53→20:17)
[2020-03-25] MEDS: PANTOPRAZOLE 40 MG TABLET. PO SCH (07:53)
[2020-03-25] MEDS: LACTOBACILLUS RHAMNOSUS GG 1 CAPSULE. PO SCH ×2 (07:53→20:17)
[2020-03-25] MEDS: DEXAMETHASONE SOD PHOS 10 MG/ML VIAL. IV SCH (07:54)
--- NOTE | 2020-03-25 09:51 | PN ---
DATE: 03/25/2020 ATTENDING PHYSICIAN: Dr. Madrid and Dr. Ellison. SUBJECTIVE: Still very weak. Minimal cough, nonproductive. OBJECTIVE FINDINGS: VITAL SIGNS: Blood pressure today is 153/78, pulse 60 and regular, temperature 97.5 degrees Fahrenheit, her oxygen saturation 97% on room air. HEENT: Head is without trauma. Pupils are reactive. Sclerae nonicteric. Oropharynx clear. NECK: Supple. LUNGS: Fairly good breath sounds. CARDIOVASCULAR: Showed regular heart tones. No gallops. ABDOMEN: Soft, nondistended. No guarding or rebound tenderness. EXTREMITIES: Without edema. NEUROLOGIC: Focally intact. Awake, alert. SKIN: Warm and dry. LABORATORY DATA: Reviewed. ASSESSMENT: 1. A 59-year-old female with COVID-19 pneumonia. 2. Hypoxemic respiratory failure, improved. 3. Gastroesophageal reflux disease. 4. Anxiety and depression. 5. History of gout. 6. Generalized weakness and debilitation. PLAN: 1. Continue IV ceftriaxone and doxycycline. 2. DVT prophylaxis. 3. Continue Decadron. 4. Discharge planning, she is not ready for discharge today. ROSA ELLISON MD DR: ELENO/edwina JOB#: [id number] / [id number]
[2020-03-25 10:36] VITALS: BP 148/63
[2020-03-25 15:42] VITALS: BP 129/72
[2020-03-25] MEDS: ENOXAPARIN 40 MG/0.4 ML SYRINGE. SQ SCH (17:00)
[2020-03-25 19:28] VITALS: BP 151/77
[2020-03-25] MEDS: ACETAMINOPHEN 325 MG TABLET PO PRN (20:17)
[2020-03-26] MEDS: HYDROcodone/APAP 5/325MG 1 TAB TABLET PO PRN (03:03)
[2020-03-26] MEDS: CITALOPRAM 20 MG TABLET. PO SCH (08:24)
[2020-03-26] MEDS: GABAPENTIN 100 MG CAPSULE. PO SCH (08:24)
[2020-03-26] MEDS: ACETAMINOPHEN 325 MG TABLET PO PRN (08:24)
[2020-03-26] MEDS: LACTOBACILLUS RHAMNOSUS GG 1 CAPSULE. PO SCH (08:24)
[2020-03-26] MEDS: PANTOPRAZOLE 40 MG TABLET. PO SCH (08:24)
[2020-03-26] MEDS: DOXYCYCLINE HYCLATE 100 MG TABLET PO SCH (08:24)
[2020-03-26] MEDS: ALPRAZolam 0.5 MG TABLET PO SCH (08:25)
[2020-03-26] MEDS: ALLOPURINOL 100 MG TABLET. PO SCH (08:25)
[2020-03-26] MEDS: DEXAMETHASONE SOD PHOS 10 MG/ML VIAL. IV SCH (08:25)
--- NOTE | 2020-03-26 11:34 | DS ---
DATE OF DISCHARGE: 03/26/2020 ATTENDING PHYSICIAN: Dr. Madrid and Dr. Ellison. FINAL DISCHARGE DIAGNOSES: 1. COVID-19 pneumonia, improved. 2. Acute hypoxemic respiratory failure, resolved. 3. Gastroesophageal reflux disease. 4. Underlying anxiety and depression. 5. History of gout. 6. Generalized weakness and debilitation. HISTORY AND PHYSICAL: This is a 59-year-old female with cough, congestion, shortness of breath, admitted with pneumonia. She had evidence of COVID-19 coronavirus. PHYSICAL EXAMINATION: Please see the dictated note. PERTINENT LABORATORY AND X-RAY STUDIES: Chest x-ray on admission showed a posterior left infiltrate, patchy nodular infiltrate on the right side with mediastinal and hilar lymphadenopathy, most likely reactive. Hemoglobin was maintained at 12.6 g/dL, white count 3900. Chemistry panel, normal BUN and creatinine, electrolytes. Nonfasting blood sugar 112, creatinine 0.8 mg percent. Cardiac enzymes negative for coronary ischemia. COURSE IN THE HOSPITAL: The patient was admitted. She was started on empiric intravenous antibiotics, Decadron and supplemental oxygen. She did well, eventually supplemental oxygen was weaned off. Prior to discharge, she had oxygen saturating 94% on room air. She is discharged home with followup visit in a couple of weeks with Mony Gibbs. I wrote her a script for cephalexin 500 mg p.o. t.i.d. for 7 more days. In addition, she should continue her scheduled alprazolam, allopurinol, citalopram, Neurontin, hydrocodone, meclizine, omeprazole, and Zofran dose is unchanged. She is discharged then from our hospital in stable condition with explicit instructions and followup care. ROSA ELLISON MD DR: ELENO/edwina JOB#: [id number] / [id number] MONY Gifford
== END 2020-03-26 11:30 | disposition home or self-care (01) | DRG 177 ==
LOC: ER 07:52 → 1 SOUTH 13:30
PROVIDERS: ADMIT Internal Medicine; ATTEND Hospitalist
DX: U07.1 COVID-19 (principal); J12.89 Other viral pneumonia; J96.01 Acute respiratory failure with hypoxia; F32.9 Major depressive disorder, single episode, unspecified; F41.9 Anxiety disorder, unspecified; K21.9 Gastro-esophageal reflux disease without esophagitis; M10.9 Gout, unspecified; Z82.49 Family history of ischemic heart disease and other diseases of the circulatory system; Z87.891 Personal history of nicotine dependence; Z90.710 Acquired absence of both cervix and uterus
CPT/HCPCS: 36415; 71045; 71275; 80053; 84484; 85025; 85027; 85379; 87804; 93005; 96361; 96365; 96368; 96375; J0696; J1100; J1650; J2405; J3490; Q0162; Q9967; U0003; 99285-25; J7030

== ENCOUNTER 2020-09-29 09:39 | Emergency (ER) | payer OTHER ==
[~2020-09-29] VITALS: Ht 165.1 cm; Wt 93.6 kg
[~2020-09-29 09:39] MED LIST changes: +ALPR1TAB2 PO; +CITA40TA5 PO; +OMEP20TA63 PO
[2020-09-29] MEDS ORDERED: KETOROLAC 30 MG/ML VIAL. ONE (09:58)
[2020-09-29] MEDS ORDERED: KETOROLAC 30 MG/ML VIAL. IM ONE (10:00)
[2020-09-29] MEDS ORDERED: HYDR-2155 PO (10:21)
--- NOTE | 2020-09-29 10:21 | PHYS DOC ---
Past History Past Medical History: Anxiety, Depression, Other Additional Past Medical Histor: Chronic Back Pain Past Surgical History: Other Additional Past Surgical Histo: bariatric sleeve Smoking: Cigarettes Alcohol Use: None Drug Use: None General Adult EDM: Chief Complaint: ANKLE PROBLEM HPI: HPI: 60-year-old female presents with right foot pain and swelling. Patient reports she was taking the dogs out and ended up missing a step causing her to come down straight onto the foot. Reports hearing a "pop ". Reports subsequent swelling to dorsum of foot with significant amount of pain with any bearing of weight. Denies prior injury to this foot. Denies use of blood thinners. Denies other injury. Review of Systems: Review of Systems: Constitutional: Denies fever or chills Eyes: Denies redness or eye pain HENT: Denies nasal congestion or sore throat Respiratory: Denies cough or shortness of breath Cardiovascular: Denies chest pain or palpitations GI: Denies abdominal pain, nausea, or vomiting : Denies dysuria or hematuria Musculoskeletal: Denies back pain; reports right foot pain Integument: Denies rash or skin lesions Neurologic: Denies headache, focal weakness or sensory changes Complete systems were reviewed and found to be within normal limits, except as documented in this note. Current Medications: Current Meds: Current Medications Medications (Trade) Dose Ordered Sig/Pineda Start Time Stop Time Status Last Admin Dose Admin Ketorolac Tromethamine (Toradol 30mg Vial) 30 mg STK-MED ONCE 09/29/20 09:58 09/29/20 10:00 DC Allergies: Allergies: Allergies Coded Allergies Type Severity Reaction Last Updated Verified No Known Drug Allergies 03/20/20 No Physical Exam: PE: Constitutional: Well developed, well nourished, no acute distress, non-toxic appearance HENT: Normocephalic, atraumatic Eyes: Conjunctiva normal, no discharge Neck: Normal range of motion, supple Lungs & Thorax: No respiratory distress, equal chest rise and fall Skin: Warm, dry, no erythema, no rash, swelling to dorsum of right foot at base of metatarsals Extremities: No tenderness, ROM intact, no edema Neurologic: Alert and oriented X 3, normal motor function, normal sensory function, no focal deficits noted Psychologic: Affect normal, judgment normal Current Patient Data: Vital Signs: Vital Signs Date Time Temp Pulse Resp B/P (MAP) Pulse Ox O2 Delivery O2 Flow Rate FiO2 09/29/20 09:45 97.7 62 18 105/66 (79) 99 Room Air EKG: EKG: [] Radiology/Procedures: Radiology/Procedures: PROCEDURE: FOOT RIGHT 3V Three-view right foot study Clinical indications: Missed step. Pain and swelling. FINDINGS: No acute fracture or dislocation or lytic process is seen. Dorsal soft tissue swelling is seen overlying the cuneiform bone area in the lateral view. There is moderate-sized plantar spur of the calcaneus. IMPRESSION: No acute fracture is seen. Electronically signed by: Lele Jolley MD (09/29/2020 10:31 AM) [id number] Heart Score: C/O Chest Pain: N/A Course & Med Decision Making: Course & Med Decision Making Pertinent Imaging studies reviewed. (See chart for details) Patient presents with right foot injury and swelling. Pain to base of middle metatarsals. Ice applied. Pain addressed. X-ray without definitive fracture however some concern on oblique view of fracture at base of third metatarsal. Discussed concern with radiologist who reevaluated film and is in agreement there is some abnormality however cannot fully see a definitive fracture. Will treat for possible nondisplaced fracture. Postop shoe applied after Gilberto wrap. Crutches provided. Patient stable for discharge with outpatient follow-up with PCP podiatry. Podiatry referral provided. Discussed findings and plan with patient, who acknowledges understanding and agreement. Dulce Disclaimer: Dulce Disclaimer: This electronic medical record was generated, in whole or in part, using a voice recognition dictation system. Splinting Splinting : Location: Right foot Pre-Made Type: GILBERTO bandage and post op shoe Pre-Proc Neuro Vasc Exam: normal Post-Proc Neuro Vasc Exam: normal, unchanged from pre-exam Departure Departure: Impression: Primary Impression: Fracture of metatarsal bone of right foot Qualified Codes: S92.331A - Displaced fracture of third metatarsal bone, right foot, initial encounter for closed fracture Disposition: HOME / SELF CARE / HOMELESS Condition: STABLE Referrals: RAKEL BLANKENSHIP MD (PCP) Patient Instructions: Cast Shoe, Crutch Use, [id number], Metatarsal Fracture, Undisplaced, RICE - Routine Care for Injuries, [id number] Additional Instructions: Nonweight bearing on right foot (use crutches) until seen by podiatry. Call and make an appointment to see apparel merchandiser for further evaluation and management. [facility] [address] [place] [facility] Hydrocodone Bit/Acetaminophen (HYDROCODONE-APAP 5325 ) 1 Each Tablet 0.5-1 TAB PO PRN Q6HRS PRN for PAIN, #14 TAB 0 Refills Prov: GUSTAVO BULL DO 09/29/20 GUSTAVO BULL DO Sep 29, 2020 10:21
[2020-09-29 10:30] VITALS: BP 110/61
--- NOTE | 2020-09-29 10:33 | RAD ---
Three-view right foot study Clinical indications: Missed step. Pain and swelling. FINDINGS: No acute fracture or dislocation or lytic process is seen. Dorsal soft tissue swelling is s een overlying the cuneiform bone area in the lateral view. There is moderate-sized plantar spur of th e calcaneus. IMPRESSION: No acute fracture is seen. Electronically signed by: Lele Jolley MD (09/29/2020 10:31 AM) [id number]
== END 2020-09-29 10:36 | disposition home or self-care (01) ==
LOC: ER 09:39
DX: S92.331A Displaced fracture of third metatarsal bone, right foot, initial encounter for closed fracture (principal); F17.210 Nicotine dependence, cigarettes, uncomplicated; G89.29 Other chronic pain; W10.8XXA Fall (on) (from) other stairs and steps, initial encounter; Y93.89 Activity, other specified; Y92.89 Other specified places as the place of occurrence of the external cause; Y99.8 Other external cause status
CPT/HCPCS: 73630; 96372; 99283; J1885

== ENCOUNTER → 2020-10-08 | Outpatient (CLI) | payer OTHER ==
[2020-09-29 10:30] VITALS: BP 110/61
[~2020-10-08] MED LIST changes: +HYDR-2155 PO
--- NOTE | 2020-10-08 12:55 | RAD ---
EXAMINATION: Chest radiograph. VIEWS: 2 views COMPARISON: 03/20/2020 INDICATION:60 years, Female, shortness of breath. FINDINGS: Normal cardiomediastinal silhouette. Elevated of the left hemidiaphragm. Subsegmental atelectasis shaheen chanelle scarring in the lingula and left lower lobe. No focal consolidation. No pleural effusion or pneum othorax. No acute osseous process. IMPRESSION: 1. Subsegmental atelectasis versus scarring in the lingula and left lower lobe, new since prior exam. 2. Otherwise, no acute cardiopulmonary process. Electronically signed by: Rick Ruiz MD (10/08/2020 12:53 PM) [facility]
== END ==
LOC: RAD 11:57
PROVIDERS: ATTEND Family Medicine
DX: R06.09 Other forms of dyspnea (principal)
CPT/HCPCS: 71046

== ENCOUNTER → 2020-12-29 | Outpatient (CLI) | payer OTHER ==
--- NOTE | 2020-12-29 15:08 | RAD ---
EXAM: Right hand, 3 views. HISTORY: Injury. Pain. COMPARISON: None. FINDINGS: 3 views of the right hand are obtained. There is no fracture, dislocation or subluxation. T here is degenerative spurring involving the first carpometacarpal joint. There is no radiodense forei gn body. IMPRESSION: No acute osseous finding. Mild first carpometacarpal joint osteoarthritis. Electronically signed by: Tanya Funk MD (12/29/2020 3:05 PM) [id number]
== END ==
LOC: RAD 14:25
PROVIDERS: ATTEND Family Medicine
DX: S69.91XA Unspecified injury of right wrist, hand and finger(s), initial encounter (principal); M18.11 Unilateral primary osteoarthritis of first carpometacarpal joint, right hand; X58.XXXA Exposure to other specified factors, initial encounter; Y92.89 Other specified places as the place of occurrence of the external cause; Y93.89 Activity, other specified; Y99.8 Other external cause status
CPT/HCPCS: 73120

== ENCOUNTER 2021-03-16 11:30 | Emergency (ER) | payer OTHER ==
[~2021-03-16] VITALS: Ht 165.1 cm; Wt 85.8 kg
[~2021-03-16 11:30] MED LIST changes: -CITA40TA5 PO; +CITA40TA6 PO
--- NOTE | 2021-03-16 12:38 | EKG ---
[address] [address] Test Date: 2021-03-16 Test Time: 12:20:30 Pat Name: HARMAN BANKS Department: Room: Gender: F Machinist/Machine Builder: DALLIN : 1960 Requested By: JULITA LOMELI Order Number: [id number] Reading MD: Measurements Intervals [place] Rate: 69 P: 30 AK: 158 QRS: -45 QRSD: 92 T: 26 QT: 388 QTc: 417 Interpretive Statements SINUS RHYTHM ABNORMAL LEFT AXIS DEVIATION R-S TRANSITION ZONE IN V LEADS DISPLACED TO THE LEFT LEFT ANTERIOR FASCICULAR BLOCK ABNORMAL ECG RI6.02 No previous ECG available for comparison
--- NOTE | 2021-03-16 12:41 | PHYS DOC ---
Past History Past Medical History: Anxiety, Depression, Other Additional Past Medical Histor: Chronic Back Pain Past Surgical History: Hysterectomy, Other Additional Past Surgical Histo: bariatric sleeve Smoking: Cigarettes Alcohol Use: None Drug Use: None Adult General Chief Complaint Chief Complaint: SHORTNESS OF BREATH HPI HPI Patient is a 60-year-old female presenting for numerous issues. States she has had 3 days of generalized URI symptoms that have developed into a productive cough. She is also had extreme fatigue, loss of sense of taste and smell, and feels unmotivated to perform ADLs. She reports she has been so weak she has had poor p.o. intake as she has not had the energy to make herself anything to eat. States she is not vaccinated against Covid, she does admit prior infection in February and March 2020. She has history of anxiety and depression, no other major comorbid conditions. Reports ongoing fatigue, nasal congestion, rhinorrhea, postnasal drip, cough, loss of taste and smell, generalized ab dominal cramping and looser stools than usual. Review of Systems Review of Systems Fourteen body systems of review of systems have been reviewed. See HPI for pertinent positives and negative responses, other hernandez all other systems are negative, non-pertinent or non-contributory Allergies Allergies Allergies Coded Allergies Type Severity Reaction Last Updated Verified No Known Drug Allergies 03/16/21 No Physical Exam Physical Exam General: Appears well, non toxic, and comfortable Skin: Warm, dry. Normal for ethnicity. HEENT: Atraumatic. PERRLA. Nasal turbinates boggy b/l. Moist mucous membranes. Uvula midline. Maintaining secretions. No phonation changes. Neck: Trachea midline. Normal ROM. No stridor. Respiratory: Normal WOB. CTAB w/o w/r/r. No tachypnea. Cardiovascular: Regular rate and rhythm. Normal peripheral perfusion. Abdomen: Soft. Non tender. No distension. Back: Normal ROM. Musculoskeletal: No swelling or deformity. Neuro: Alert and oriented x 4. MAEE. Lymph: No cervical LAD. Psych: Normal affect and mood. Current Patient Data Vital Signs Vital Signs Date Time Temp Pulse Resp B/P (MAP) Pulse Ox O2 Delivery O2 Flow Rate FiO2 03/16/21 11:42 98.6 81 17 139/84 (102) 97 Room Air Lab Results Laboratory Tests Test 03/16/21 12:46 White Blood Count 6.7 x10^3/uL Red Blood Count 4.31 x10^6/uL Hemoglobin 13.4 g/dL Hematocrit 38.9 % Mean Corpuscular Volume 90 fL Mean Corpuscular Hemoglobin 31 pg Mean Corpuscular Hemoglobin Concent 35 g/dL Red Cell Distribution Width 14.0 % Platelet Count 149 x10^3/uL Neutrophils (%) (Auto) 56 % Lymphocytes (%) (Auto) 27 % Monocytes (%) (Auto) 10 % Eosinophils (%) (Auto) 7 % Basophils (%) (Auto) 1 % Neutrophils # (Auto) 3.7 x10^3uL Lymphocytes # (Auto) 1.8 x10^3/uL Monocytes # (Auto) 0.6 x10^3/uL Eosinophils # (Auto) 0.4 x10^3/uL Basophils # (Auto) 0.1 x10^3/uL Sodium Level 142 mmol/L Potassium Level 3.9 mmol/L Chloride Level 107 mmol/L Carbon Dioxide Level 28 mmol/L Anion Gap 7 Blood Urea Nitrogen 14 mg/dL Creatinine 0.8 mg/dL Estimated GFR (Cockcroft-Gault) 73.7 Glucose Level 86 mg/dL Calcium Level 8.5 mg/dL Troponin I High Sensitivity 5 ng/L PN-Dgs-O-Type Natriuretic Peptide 114 pg/mL SARS-CoV-2 Antigen (Rapid) Negative EKG EKG EKG ordered and interpreted by myself 1231 hrs. as sinus rhythm at 69 bpm, unremarkable intervals, left axis deviation, no obvious ischemic findings, no STEMI Radiology/Procedures Radiology/Procedures INDICATION: Reason: shob / Spl. Instructions: / History: COMPARISON: March 14, 2021 FINDINGS: Single view of chest obtained. Increasing bilateral pulmonic infiltrates. Cardiomediastinal silhouette is mildly prominent but likely exaggerated by portable technique. Similar to prior. IMPRESSION: * Increasing bilateral pulmonic infiltrates. Again this could be infectious in nature including from worsening viral pneumonia. Superimposed bacterial pneumonia not excluded. Electronically signed by: Aftab Benjamin MD (03/16/2021 11:14 AM) [id number] Heart Score C/O Chest Pain: No HEART Score for Chest Pain: HEART Score for Chest Pain Response (Comments) Value History Slighlty/Non-Suspicious 0 ECG Normal 0 Age >45 - < 65 1 Risk Factors 1 or 2 Risk Factors 1 Troponin < Normal Limit 0 Total 2 Risk Factors: Risk Factors: DM, Current or recent (<one month) smoker, HTN, HLP, family history of CAD, obesity. Risk Scores: Risk Factors: DM, Current or recent (<one month) smoker, HTN, HLP, family history of CAD, obesity. Course & Med Decision Making Course & Med Decision Making ABCs unremarkable. I disclosed entirety of ER findings and discussed most likely diagnosis of viral syndrome, rapid Covid negative but PCR pending. Other lillie gnoses were discussed with patient such as ACS, pneumonia, pulmonary embolism and other potentially life-threatening diagnoses but all deemed less likely causes of patient's presentation. Supportive care practices advised. Plan of care discussed at length with need for close outpatient follow-up to review today's ER visit stressed. Strict return precautions were also discussed at length with good understanding verbalized by patient. Patient voiced understanding and agreement with the plan. Patient knows to come back for repeat evaluation if concerning signs or symptoms present prior to outpatient follow- up. Hemodynamically stable, ambulatory and well-appearing at time of disposition. Dragon Disclaimer Dragon Disclaimer This electronic medical record was generated, in whole or in part, using a voice recognition dictation system. Departure Departure: Impression: Primary Impression: Viral syndrome Additional Impression: Person under investigation for COVID-19 Disposition: HOME / SELF CARE / HOMELESS Condition: STABLE Referrals: RAKEL BLANKENSHIP MD (PCP) Additional Instructions: You were seen for fatigue, cough, body aches, and possible infection with COVID- 19. Your physical exam was reassuring. Your chest x-ray and comprehensive ER work-up was normal. We tested you for COVID-19 but this test does not come back for 1 to 2 days. In the meantime you need to quarantine yourself at home away from all other individuals, especially those who are elderly or have any other chronic health issues or an immunocompromised status. You should return to the ED if you develop worsening cough, shortness of breath, chest pain, or any other new or concerning symptoms. Alternate Tylenol and ibuprofen as needed for body aches and pain. If your test does come back positive you need to quarantine yourself for 10 days until symptom-free. You should make sure to drink plenty of fluids and get plenty of rest. Problem Qualifiers JULITA LOMELI DO Mar 16, 2021 12:40
[2021-03-16 13:06] LABS: BASO # 0.1 x10^3/uL (0.0-0.2); BASO % 1 % (0-3); EOS # 0.4 x10^3/uL (0.0-0.7); EOS % 7 % (0-3); HEMATOCRIT 38.9 % (36.0-47.0); HEMOGLOBIN 13.4 g/dL (12.0-15.5); LYMPH # 1.8 x10^3/uL (1.0-4.8); LYMPH % 27 % (24-48); MEAN CORPUSCULAR HEMOGLOBIN 31 pg (25-35); MEAN CORPUSCULAR HGB CONC 35 g/dL (31-37); MEAN CORPUSCULAR VOLUME 90 fL (79-100); MONO # 0.6 x10^3/uL (0.0-1.1); MONO % 10 % (0-9); NEUT # 3.7 x10^3uL (1.8-7.7); NEUT % 56 % (31-73); PLATELET COUNT 149 x10^3/uL (140-400); RED BLOOD COUNT 4.31 x10^6/uL (3.50-5.40); WHITE BLOOD COUNT 6.7 x10^3/uL (4.0-11.0)
[2021-03-16 13:19] LABS: CALCIUM 8.5 mg/dL (8.5-10.1); CREATININE 0.8 mg/dL (0.6-1.0); GFR 73.7; POTASSIUM 3.9 mmol/L (3.5-5.1)
--- NOTE | 2021-03-16 13:42 | RAD ---
XR CHEST 1V History: Shortness of breath. Comparison: 10/08/2020 Technique: Portable AP radiograph of the chest. Findings: The lungs are adequately inflated. There are redemonstrated linear opacities in the left lung base, l ikely atelectasis or scarring. No focal airspace consolidation, pleural effusion or pneumothorax. The cardiomediastinal silhouette and pulmonary vasculature are within normal limits. Osseous structures and soft tissues are unremarkable. Impression: 1. No acute cardiopulmonary process. Electronically signed by: Aroldo Howe MD (03/16/2021 1:40 PM) [id number]
[2021-03-16 14:07] VITALS: BP 102/55
--- NOTE | 2021-03-20 09:25 | NUR ---
Attempted to contact with covid results. No answer. Message left.
== END 2021-03-16 14:10 | disposition home or self-care (01) ==
LOC: ER 11:30
DX: B34.9 Viral infection, unspecified (principal); G89.29 Other chronic pain; F17.210 Nicotine dependence, cigarettes, uncomplicated; Z20.822 Contact with and (suspected) exposure to COVID-19
CPT/HCPCS: 71045; 80048; 83880; 84484; 85025; 87426; 93005; 99285; C9803; U0003